=== PATIENT | female | born 1995 | race Asian ===

== ENCOUNTER 2016-09-03 14:48 | Emergency (ER) | payer OTHER ==
[2016-09-03 14:53] VITALS: BP 106/69; PULSE 88; RESP 14; TEMP 97.9; O2SAT 93
--- NOTE | 2016-09-03 14:53 | EDPHY ---
H & P Stated Complaint: infected nail bed Time Seen by Provider: 09/03/16 14:50 HPI/ROS: Chief Complaint: Redness along right 4th nail bed HPI: The patient presents to the ED with 5 days of redness and tenderness along ulnar aspect her right 4th nail bed. 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 She has been treating it with hydrogen peroxide at home. She presents to the ED complaining of increasing pain and redness. She denies fever. She denies additional complaints. She denies any significant past medical history. Patient has normal range of motion of the digit. REVIEW OF SYSTEMS: Neuro: no headache, numbness, weakness Musculoskeletal: as above Skin: As above Source: Patient Exam Limitations: No limitations - Personal History LMP (Females 10-55): 15-21 Days Ago Current Tetanus Diphtheria and Acellular Pertussis (TDAP): Unsure - Medical/Surgical History Hx Asthma: No Hx Chronic Respiratory Disease: No Hx Diabetes: No Hx Cardiac Disease: No Hx Renal Disease: No Hx Cirrhosis: No Hx Alcoholism: No Hx HIV/AIDS: No Hx Splenectomy or Spleen Trauma: No Other PMH: PMH MIGRANES, VERTIGO. PSH- TONSILLECTOMY - Social History Smoking Status: Never smoked - Physical Exam Exam: General Appearance: Alert, no distress Skin: Mild erythema along the 4th right finger ulnar nail bed, no felon, no paronychia Musculoskeletal: Neck is supple nontender Extremities: symmetrical, full range of motion Constitutional: Initial Vital Signs Temperature (C) 36.6 C 09/03/16 14:50 Heart Rate 88 09/03/16 14:50 Respiratory Rate 14 09/03/16 14:50 Blood Pressure 106/69 09/03/16 14:50 O2 Sat (%) 93 09/03/16 14:50 O2 Delivery Mode Room Air Allergies/Adverse Reactions: No Known Allergies Allergy (Unverified 09/03/16 15:07) Home Medications: Medication Instructions Recorded Estradiol 05/11/16 Cephalexin [Keflex] 500 mg PO TID #15 cap 09/03/16 Medical Decision Making ED Course/Re-evaluation: The patient presents to the ED with mild erythema without evidence of swelling or a felon involving her 4th finger. The patient will be started on Keflex. I have asked her to follow up with our on-call hand surgeon for a recheck in the next 3-4 days. She is discharged home with customary aftercare instructions and return precautions. Departure - Departure Disposition: Home, Routine, Self-Care Clinical Impression: Cellulitis, finger, Ingrown fingernail Condition: Good Instructions: Cellulitis (ED) Additional Instructions: 1. Soak finger in warm water 30 minutes at a 3-4 times a day. 2. Please take antibiotics as directed. 3. Please follow up with a hand surgeon you have been referred to for a recheck in the next 2-3 days. 4. Please return to the ED for increasing pain, redness, swelling, fever or other concerns. Referrals: Kelvin Porter MD [Medical Doctor] - As per Instructions
== END 2016-09-03 15:15 | disposition home or self-care (01) ==
DX: L60.0 Ingrowing nail (principal); L03.011 Cellulitis of right finger